=== PATIENT | female | born 1965 | race Caucasian/White ===

== ENCOUNTER 2017-03-27 22:12 | Emergency (ER) | payer MEDICAID, SELFPAY ==
[2017-03-27 22:13] VITALS: BP 160/91; PULSE 85; RESP 14; TEMP 36.3; O2SAT 99; BMI 46.0
--- NOTE | 2017-03-28 00:28 | ED.DCSUM_ITS ---
- ER Visit Summary Date of Service: 03/28/17 Chief Complaint: Right eye swelling History of Present Illness: The patient is a [address] Oquendo. She reports that she began having swelling of her right eye 3 days ago. She used a cold compress and it resolved. States swelling is returned today. Her conjunctiva has been red for the past 3 days. She reports that she has had discharge and matting in the morning. She denies any change in her vision. She reports she has severe pain when she rubs her eye. Mild pain at rest. She denies any exposure to tanning richards or UV light. She reports that she does wear contact lenses. Physical Examination: Vitals: Stable. Afebrile. Visual acuity is 20/20 OD, 20/20 OS, 20/20 OU. Right eye: Mild swelling of her upper and lower eyelids. There is mild ecchymosis. She does have diffuse conjunctival injection with ciliary flush. There is no foreign body or abrasion. No forcing dye uptake. Pupils are equal round reactive to light. There is no consensual photophobia. General: Well-nourished and well-developed. Head: Normocephalic atraumatic. Neck: Supple, no lymphadenopathy. No JVD. Nontender. Cardiovascular: Regular rate and rhythm. No murmurs. Respiratory: No respiratory distress. Clear to auscultation bilaterally. Abdominal: Soft, nontender, nondistended, normal bowel sounds. No guarding, rebound, or peritoneal signs. Back: Nontender. Extremities: Nontender, no edema. Skin: Normal color, no rash. Neurologic: Alert and oriented ?3. Cranial nerves II through XII are intact. Normal strength and sensation. Psych: Normal affect. Emergency Department Course and Treatment: Patient was treated with Cipro eyedrops. She is resting comfortably. Treatment Plan: Patient will be discharged instructions to follow-up with Dr. Guerrier in 3-5 days for another exam. Return to the emergency department for any worsening symptoms. Disposition: To home in improved and stable condition. Impression:. Conjunctivitis on right. This note was generated with [employer] software. It may contain incorrect words, spelling, and punctuation that were not noted in review of the chart prior to signing ED Disposition - Plan for ED Patient: Disposition: Home or Assisted Living Chief Complaint: Eye Problem Instructions: ED Conjunctivitis Nonspecific Referrals: Gely Guerrier MD [STAFF PHYSICIAN] - 3-5 Days if not improving
[2017-03-28] MEDS: Ciprofloxacin 0.3% 2.5ml Bottle 2 DRP RIGHT EYE (00:49)
[2017-03-28] MEDS: Fluorescein 1 MG STRIP 1 STRIP RIGHT EYE (00:49)
[2017-03-28 00:51] VITALS: PULSE 74; RESP 16; O2SAT 97
== END 2017-03-28 00:54 | disposition home or self-care (01) ==
LOC: ED 23:36
PROVIDERS: Emergency Provider Emergency Medicine; Family Provider Family Medicine; PCP Family Medicine
DX: H10.9 Unspecified conjunctivitis (principal); Z72.0 Tobacco use; Z79.899 Other long term (current) drug therapy
CPT/HCPCS: 99283

== ENCOUNTER 2020-09-12 18:55 | Emergency (ER) | payer MEDICAID, SELFPAY ==
[2020-09-12 18:57] VITALS: BP 183/86; PULSE 78; RESP 15; TEMP 35.3; O2SAT 98; BMI 46.0
--- NOTE | 2020-09-12 20:08 | US_ITS ---
STUDY: VENOUS DOPPLER ULTRASOUND - RIGHT LOWER EXTREMITY REASON FOR EXAM: Female, 55 years old. RT HEEL NUMBNESS X 3 DAYS, RT CALF BURN SENSATION TECHNIQUE: Ultrasound evaluation of the deep vein system to include shaikh-scale imaging and compression was performed. Shaikh-scale imaging and Doppler sonographic evaluation, including duplex spectral analysis and qualitative color flow sonography, was performed. COMPARISON: None. FINDINGS: Common Femoral Vein: Normal compression, spontaneity and augmentation. Normal color Doppler. Common Femoral Vein/Greater Saphenous Junction: Normal compression, spontaneity and augmentation. Normal color Doppler. Deep Femoral Vein: Normal compression, spontaneity and augmentation. Normal color Doppler. Femoral Proximal: Normal compression, spontaneity and augmentation. Normal color Doppler. Femoral Middle: Normal compression, spontaneity and augmentation. Normal color Doppler. Femoral Distal: Normal compression, spontaneity and augmentation. Normal color Doppler. Popliteal Vein: Normal compression, spontaneity and augmentation. Normal color Doppler. Posterior Tibial Vein: Normal compression, spontaneity and augmentation. Normal color Doppler. Peroneal Vein: Normal compression, spontaneity and augmentation. Normal color Doppler. US/Venous Duplex Imag/Limited/Uni IMPRESSION: Normal venous Doppler ultrasound of the lower extremity. Electronically Signed: Ayaan Cobos MD at 21:21 EDT , Service support ,
[2020-09-12 20:46] LABS: Bedside Glucose 95 mg/dL (70-110)
--- NOTE | 2020-09-12 21:57 | EX.ED.DYSGE1 ---
HPI History of Present Illness Chief Complaint: Numb/Ting Informant: patient Narrative Narrative: 55-year-old female presented to the emergency department with numbness of the right heel extending down onto the lateral foot. She denies any recent trauma. It has been present for the past several days. Patient denies any prior history of the same. She states that she is not a known diabetic. She spends a lot of time at work on her foot. The symptoms began after a shift. She states it has gotten a little bit better since the day it began. She denies any muscle weakness. She went to the urgent care because she had mentioned she had some pain behind her knee they wanted her to see in the emergency department to rule out a DVT. [facility] Medical History Blair esophagus Bipolar disorder Home Medications bupropion HCl 300 mg PO DAILY 02/09/15 [History Last Taken Unknown] carbamazepine [Tegretol] 200 mg PO BID 02/09/15 [History Last Taken Unknown] omeprazole 20 mg PO BID 02/09/15 [History Last Taken Unknown] melatonin 1 mg PO QHS 09/12/20 [History Last Taken Unknown] Allergy/AdvReac Type Severity Reaction Status Date / Time acetaminophen [From [place]] Allergy Vomiting Verified 09/12/20 18:58 hydrocodone [From [place]] Allergy Vomiting Verified 09/12/20 18:58 Sulfa (Sulfonamide Allergy Angioedema Verified 03/27/17 22:17 Antibiotics) Social History (Updated 09/12/20 @ 22:[address] Omar Gee DO) Smoking Status: Former smoker substance use type: does not use ROS ROS ED Constitutional Constitutional ED: Denies chills or weight loss Eyes Eyes: Denies change in vision or diplopia ENT ENT ED: Denies ear pain, rhinorrhea or sore throat Cardiovascular Cardiovascular: Denies chest pain, orthopnea, palpitations or racing heartbeat Respiratory/Chest Respiratory/Chest: Denies cough, dyspnea or orthopnea Gastrointestinal Gastrointestinal: Denies abdominal pain, diarrhea, nausea or vomiting Genitourinary Genitourinary ED: Denies dysuria, hematuria or urinary frequency Musculoskeletal Musculoskeletal: Denies arthralgias or myalgias Integumentary Denies abscess or rash Neurologic Neurologic: Reports other Details: See history of present illness ; Denies headache(s) or weakness Psychiatric Psychiatric: Denies anxiety, depression, suicidal ideation or suicidal thoughts Endocrine Endocrinology: Denies polydipsia, polyphagia or polyuria Allergic/Immunologic Allergic/Immunologic ED: Denies mouth swelling, tongue swelling or urticaria EXAM Physical Exam Const Vital Signs: 09/12/20 18:57 Temperature 95.6 F L Temperature Source Temporal Pulse Rate 78 Respiratory Rate 15 Blood Pressure 183/86 H Blood Pressure Mean 118 Pulse Ox 98 Oxygen Delivery Method Room Air Positive well nourished, well developed and obese General Appearance ED: well developed Nutritional Appearance: obese HEENT Reports normocephalic, head/scalp atraumatic and moist mucous membranes Eyes PERRL and EOMs intact bilaterally Neck no lymphadenopathy, supple and no JVD Resp normal respiratory effort and clear to auscultation bilaterally Cardio regular rate, regular rhythm and no murmurs GI normal to inspection, nondistended, normoactive bowel sounds and non-tender Palpation: soft Back/Spine no CVA tenderness and normal ROM Extremity normal to inspection General Extremety ED: Negative for edema General Extremity: Negative for edema Neuro oriented x3 and CN's II-XII intact bilaterally Neuro Narrative: Patient reports decreased sensation over the heel of the right foot. Sensorium / Orientation: alert Motor Exam: strength 5/5 throughout Psych mental status grossly normal Mood & Affect: Negative for depressed or tearful Skin no rashes or lesions noted and no wounds MDM MDM MDM Narrative Medical decision making narrative: Patient's [id number] glucose 95. Hemoglobin A1c is 6. Duplex ultrasound is negative. Patient can follow-up either with podiatry with her family doctor. We talked about neuropraxia versus neuro peripheral neuropathy. She may consider a heel cup. Patient understands the plan return if worsening or concerns Lab Data Labs: Laboratory Results - last 24 hr 09/12/20 09/12/20 20:30 20:39 Hemoglobin A1c 6.0 H POC Glucose 95 Radiography Diagnostic Testing: Radiology Impression Venous Duplex 09/12/20 20:08 IMPRESSION: Normal venous Doppler ultrasound of the lower extremity. Electronically Signed: Ayaan Cobos MD at 21:21 EDT , Service support , Discharge Plan Triage Chief Complaint: Numb/Ting ED Provider: Omar Gee Dx/Rx/DC Orders Clinical Impression: Neuropathy Instructions: ED Neuropathy, Peripheral Prescriptions: No Action carbamazepine [Tegretol] 200 MG tablet 200 mg PO BID RF: 0 omeprazole 20 MG capsule 20 mg PO BID RF: 0 bupropion HCl 300 MG tablet extended release 24 hr 300 mg PO DAILY RF: 0 melatonin 1 mg Tablet 1 mg PO QHS RF: 0 Primary Care Provider: PodMacie barr NP Referrals: Alessia Baca DPM [STAFF PHYSICIAN] - As soon as possible (for podiatry ) Macie Tirado NP, LINE UP MACHINE OPERATOR-C [Primary Care Provider] - Disposition Disposition: Home, Self Care Discharge Date/Time: 09/12/20 22:02
[2020-09-12 22:02] VITALS: BP 144/76; PULSE 65; RESP 16
== END 2020-09-12 22:02 | disposition home or self-care (01) ==
PROVIDERS: Emergency Provider Emergency Medicine; PCP Nurse Practitioner Primary Care
DX: G62.9 Polyneuropathy, unspecified (principal); F31.9 Bipolar disorder, unspecified; E66.9 Obesity, unspecified; Z79.899 Other long term (current) drug therapy; Z87.891 Personal history of nicotine dependence
CPT/HCPCS: 36415; 82962; 83036; 93971; 99282

== ENCOUNTER 2021-06-03 22:20 | Emergency (ER) | payer MEDICAID, SELFPAY ==
[2021-06-03 22:20] VITALS: BP 183/85; PULSE 94; RESP 18; TEMP 35.7; O2SAT 95; BMI 44.2
[2021-06-03] MEDS: Fluorescein 1 MG STRIP 1 STRIP RIGHT EYE (22:57)
--- NOTE | 2021-06-03 23:00 | EX.ED.VIS.EY ---
HPI History of Present Illness Chief Complaint: Eye Problem Detail of Chief Complaint: Right upper eyelid swelling. Informant: patient Onset/Context/Timing Location: Right Eye Onset: Days Context: Gradual Onset Timing: Continuous Current Severity: Mild Maximum Severity: Mild Associated Symptoms Associated Symptoms - Eyes: Eyelid swelling; Negative for Burning, Crusting, Drainage, Itching, Matting, Pain, Photophobia and Redness History of injury: No Visual correction: Glasses Narrative Narrative: 56-year-old female wears glasses no contacts. Has never had eye surgery. Said on Thursday her right upper lid start becoming uncomfortable. Then she developed swelling of the last several days worse yesterday. Denies any fever. No discharge. Increased watering. She denies any foreign body or injury. No visual changes. No discharge. Prior similar symptoms: No Recent Illness/Hospitalization: No PFSH PFSH Medical History Blair esophagus Bipolar disorder Home Medications bupropion HCl 300 mg PO DAILY 02/09/15 [History Last Taken Unknown] carbamazepine [Tegretol] 200 mg PO BID 02/09/15 [History Last Taken Unknown] omeprazole 20 mg PO BID 02/09/15 [History Last Taken Unknown] melatonin 1 mg PO QHS 09/12/20 [History Last Taken Unknown] Allergy/AdvReac Type Severity Reaction Status Date / Time acetaminophen [From [place]] Allergy Vomiting Verified 06/03/21 22:22 hydrocodone [From [place]] Allergy Vomiting Verified 06/03/21 22:22 Sulfa (Sulfonamide Allergy Angioedema Verified 06/03/21 22:22 Antibiotics) Social History Smoking Status: Former smoker substance use type: does not use ROS ROS ED ROS Narrative Denies recent illness. Review of Systems ROS Unobtainable: Denies due to encephalopathy Constitutional Constitutional ED: Denies fever(s) Eyes Eyes: Denies change in vision ENT ENT ED: Denies ear pain Cardiovascular Cardiovascular: Denies chest pain Respiratory/Chest Respiratory/Chest: Denies dyspnea Gastrointestinal Gastrointestinal: Denies abdominal pain, diarrhea, nausea or vomiting Genitourinary Genitourinary ED: Denies dysuria Musculoskeletal Musculoskeletal: Denies myalgias Integumentary Denies rash Neurologic Neurologic: Denies headache(s) Psychiatric Psychiatric: Denies depression Endocrine Endocrinology: Denies polyuria Hematologic/Lymphatic Hematologic/Lymphatic: Denies easy bruising Allergic/Immunologic Allergic/Immunologic ED: Denies urticaria EXAM Physical Exam Narrative Exam Narrative: 36-year-old female no acute distress. Vital signs stable afebrile. H EENT exam pupils round reactive light extraocular motions are intact. The sclera cornea and pupil are unremarkable bilaterally. The right eye is watering a little bit more than the left. There is no discharge. Lower lids are both normal. The right upper lid is red and swollen. There appears to be an early stye in the midportion of the right upper lid. There is no pus or discharge. Fluorescein staining of the right eye and slit-lamp exam shows no foreign body, no corneal abrasion or signs of infection. There is no cellulitis. There is no preauricular lymphadenopathy. Neck nontender no lymphadenopathy. Lungs are clear. Heart regular rhythm. Otherwise exam unremarkable. Const Vital Signs: 06/03/21 22:20 Temperature 96.2 F L Temperature Source Temporal Pulse Rate 94 Respiratory Rate 18 Blood Pressure 183/85 H Blood Pressure Mean 117 Pulse Ox 95 Oxygen Delivery Method Room Air Positive well nourished, well developed and obese; Negative for cachectic, contractures or unkempt General Appearance ED: well developed and NAD; Negative for unkempt, cachectic or contractures Nutritional Appearance: obese; Negative for cachectic HEENT atraumatic; Negative for trauma or tenderness Eyes Eyes Narrative: Right upper eyelid red and swollen. Appears to be an early stye in the midportion. No discharge. Pupils round reactive light. Bilaterally. Extraocular motions are intact bilaterally. No discharge. No corneal abrasion. No foreign body. General Eye ED: Yes normal light reflex; Negative for enophthalmos, exophthalmos, proptosis, pale conjunctiva or scleral icterus Visual Acuity: acuity normal Visual Field: No peripheral vision loss Alignment: alignment normal Eyelid: eyelids abnormal right upper eyelid; Negative for eyelids normal Conjunctiva: conjunctiva normal Cornea: cornea normal Pupil: accommodation reflex normal; Negative for sluggish or Anselmo Donald pupil EOM: Negative for EOM abnormal, movement deficit or nystagmus Slit Lamp: slit lamp exam performed with fluorescein Neck no lymphadenopathy, supple and no JVD General: Negative for tenderness Resp normal respiratory effort, no retractions, no use of accessory muscles and clear to auscultation bilaterally Cardio regular rate, S1 normal heart sound, S2 normal heart sound and no murmurs GI non-tender, non-distended and no masses Auscultation: normoactive bowel sounds Palpation: soft Extremity normal to inspection General Extremety ED: Negative for edema General Extremity: Negative for edema Neuro oriented x3 and moves all extremities Sensorium / Orientation: alert, oriented to person, oriented to place and oriented to time Motor Exam: strength 5/5 throughout Psych Appearance: Negative for unkempt Attitude: No agitated Mood & Affect: Negative for depressed, anxious or tearful Skin no wounds Lesions: no lesions Rashes: no rashes MDM MDM MDM Narrative Medical decision making narrative: Right upper eyelid redness swelling consistent with a stye. This could potentially be blepharitis but organ to do conservative therapy with warm compress if this does not improve she will follow-up with [facility]. Discharge Plan Triage Chief Complaint: Eye Problem ED Provider: Sundeep Jones Dx/Rx/DC Orders Clinical Impression: Hordeolum externum (stye) Instructions: ED Sty Prescriptions: No Action carbamazepine [Tegretol] 200 MG tablet 200 mg PO BID RF: 0 omeprazole 20 MG capsule 20 mg PO BID RF: 0 bupropion HCl 300 MG tablet extended release 24 hr 300 mg PO DAILY RF: 0 melatonin 1 mg Tablet 1 mg PO QHS RF: 0 Primary Care Provider: Macie Tirado NP Referrals: Clyde Rodgers MD [STAFF PHYSICIAN] - 3-5 Days if not improving Macie Tirado NP, PROVIDER NETWORK MGR-C [Primary Care Provider] - Activity Restrictions/Additional Instructions: Most likely this appears to be an early stye in the midportion of the right upper eyelid. Treat with warm compresses. If this does not improve follow-up with [facility]. It could be what is called blepharitis which is an irritation of the right upper eyelids. That should also improve the warm compresses and washing of the upper eyelids. If it does not we may have to put you on antibiotics. Disposition Disposition: Home, Self Care
[2021-06-03 23:06] VITALS: BP 147/83
== END 2021-06-03 23:15 | disposition home or self-care (01) ==
PROVIDERS: Emergency Provider Emergency Medicine; PCP Nurse Practitioner Primary Care; Visit Provider Emergency Medicine
DX: H00.011 Hordeolum externum right upper eyelid (principal); F31.9 Bipolar disorder, unspecified; Z97.3 Presence of spectacles and contact lenses; Z79.899 Other long term (current) drug therapy; Z87.891 Personal history of nicotine dependence
CPT/HCPCS: 99282

== ENCOUNTER 2022-01-29 10:28 | Emergency (ER) | payer MEDICAID, SELFPAY ==
[2022-01-29 10:28] VITALS: BP 183/89; PULSE 82; RESP 16; TEMP 35.4; O2SAT 97; BMI 44.2
--- NOTE | 2022-01-29 11:47 | EDS_ITS ---
HPI History of Present Illness HPI Narrative: Patient is with laceration to her left index finger that occurred this morning. Patient states she was using a knife to cut cabbage and accidentally cut her finger. Patient is right-hand dominant. Patient states her last tetanus was within 5 years. Patient states that her pain feels like it is stinging. Patient states it is better with elevation and worse in a dependent position. Patient denies any paresthesias or weakness. Patient denies any other injuries. Chief Complaint: Laceration Informant: patient Occured/Mechanism Comment: Cut with a knife Onset/Context/Timing Onset: Today Context: Sudden Onset Timing: Continuous Quality of Pain: - (Stinging) Location: Left index finger Associated Symptoms Associated Symptoms: Negative for Parasthesia, Weakness or Loss of Funtion PFSH PFS Medical History (Updated 01/29/22 @ 13:[address] Konstantin Carbone DO) Blair esophagus Bipolar disorder Home Medications bupropion HCl 300 mg 24 hr tablet, extended release 300 mg PO DAILY 02/09/15 [History Last Taken Unknown] carbamazepine 200 mg tablet (Tegretol) 200 mg PO BID 02/09/15 [History Last Taken Unknown] omeprazole 20 mg capsule,delayed release 20 mg PO BID 02/09/15 [History Last Taken Unknown] melatonin 1 mg tablet 1 mg PO QHS 09/12/20 [History Last Taken Unknown] Allergy/AdvReac Type Severity Reaction Status Date / Time acetaminophen [From [place]] Allergy Vomiting Verified 01/29/22 10:28 hydrocodone [From [place]] Allergy Vomiting Verified 01/29/22 10:28 Sulfa (Sulfonamide Allergy Angioedema Verified 01/29/22 10:28 Antibiotics) Surgical History (Updated 01/29/22 @ 11:[address] Konstantin Carbone DO) Hx of cholecystectomy Social History Smoking Status: Former smoker substance use type: does not use ROS ROS ED Constitutional Constitutional ED: Denies chills or fever(s) Eyes Eyes: Denies blurry vision or change in vision ENT ENT ED: Denies rhinorrhea or sore throat Cardiovascular Cardiovascular: Denies chest pain or palpitations Respiratory/Chest Respiratory/Chest: Denies cough or dyspnea Gastrointestinal Gastrointestinal: Denies nausea or vomiting Genitourinary Genitourinary ED: Denies dysuria or hematuria Musculoskeletal Musculoskeletal: Denies back pain or neck pain Integumentary Denies abscess or rash Neurologic Neurologic: Denies headache(s) or weakness Allergic/Immunologic Allergic/Immunologic ED: Denies mouth swelling or urticaria EXAM Physical Exam Const Vital Signs: 01/29/22 10:28 Temperature 95.8 F L Temperature Source Temporal Pulse Rate 82 Respiratory Rate 16 Blood Pressure 183/89 H Blood Pressure Mean 120 Pulse Ox 97 Oxygen Delivery Method Room Air Positive well nourished, well developed and obese General Appearance ED: well developed and NAD Nutritional Appearance: obese HEENT Reports moist mucous membranes Neck full ROM and supple Extremity Extremity Narrative: There is a 1.5 cm full-thickness linear laceration of the radial aspect of the left index finger on the distal phalanx. There is mild gapping of the wound margins. There are no foreign bodies visualized. There is full range of motion of the MP, PIP, and DIP joints. Strength is 5/5 in flexion extension of the MP, PIP, and DIP joints. Sensation was intact to light touch in all digits. Capillary refill is less than 2 seconds in all digits. Neuro oriented x3, CN's II-XII intact bilaterally, moves all extremities, no focal motor deficits and no sensory deficits noted Sensorium / Orientation: alert Motor Exam: strength 5/5 throughout Psych mental status grossly normal MDM MDM MDM Narrative Medical decision making narrative: The wound was cleaned and irrigated with copious amounts of normal saline. The wound was anesthetized with 1% plain lidocaine via digital block. The wound was closed with 3 simple interrupted #4-0 nylon sutures under sterile technique. Patient tolerated the procedure well. Bacitracin dressing was applied. Patient was instructed to keep the wound clean and dry. Patient was instructed to follow-up with her primary care physician in 5 to 7 days for wound recheck and suture removal. Patient understood and was agreeable with the plan. All questions were answered. Procedures Lacerations Left index finger: Length: 1.5 cm Depth: Sub Q Shape: Linear Prep: Sterile Conditions and Chlorhexadine Laceration repair: Digital block, Irrigated, Lidocaine, Skin sutures and Wound explored Irrigated (ml): 60 Number of Sutures/Doc: 3 Suture Information: Ethilon, Simple and 4-0 Discharge Plan Triage Chief Complaint: Laceration ED Provider: Konstantin Carbone Dx/Rx/DC Orders Clinical Impression: Laceration of left index finger Instructions: ED Laceration, Hand: All Closures Prescriptions: No Action carbamazepine [Tegretol] 200 MG tablet 200 mg PO BID omeprazole 20 MG capsule 20 mg PO BID bupropion HCl 300 MG tablet extended release 24 hr 300 mg PO DAILY melatonin 1 mg Tablet 1 mg PO QHS Primary Care Provider: Macie Tirado NP Referrals: Macie Tirado NP, PAPER MACHINE BACKTENDER-C [Primary Care Provider] - 7 Days for suture removal Disposition Disposition: Home, Self Care
[2022-01-29] MEDS: Lidocaine 1% (20 ml mdv) 20 ML Vial INFILT (13:19)
[2022-01-29 13:28] VITALS: RESP 16
== END 2022-01-29 13:34 | disposition home or self-care (01) ==
PROVIDERS: Emergency Provider Emergency Medicine; PCP Nurse Practitioner Primary Care; Visit Provider Emergency Medicine
DX: S61.211A Laceration without foreign body of left index finger without damage to nail, initial encounter (principal); E66.9 Obesity, unspecified; Z87.891 Personal history of nicotine dependence; W26.0XXA Contact with knife, initial encounter; Y93.G3 Activity, cooking and baking
CPT/HCPCS: 12001; 99283

== ENCOUNTER 2023-08-28 13:19 | Emergency (ER) | payer SELFPAY ==
[2023-08-28 13:19] VITALS: BP 136/78; PULSE 84; RESP 22; TEMP 35.8; O2SAT 90; BMI 45.1
--- NOTE | 2023-08-28 13:56 | EDS_ITS ---
HPI History of Present Illness HPI Narrative: Patient presents with pain in her right foot that occurred 1 week ago. Patient states she stepped on it wrong 1 week ago and felt pain in her foot. Patient states she kept it elevated and rested. Patient states that yesterday she reinjured it. Patient states her pain is dull and aching. Patient states it is sharp and stabbing with weightbearing. Patient denies any paresthesias or weakness. Patient denies any other injuries. Chief Complaint: Lower Extremity Injury Informant: patient Onset/Context/Timing Onset: Weeks (1) Context: Sudden Onset Timing: Continuous Quality of Pain: Dull and Aching Location: Right foot Worsened by: Weightbearing Relieved by: Rest Associated Symptoms Associated Symptoms: Negative for Parasthesia, Weakness or Loss of Funtion [facility] Medical History (Updated 08/28/23 @ 16:[address] Konstantin Carbone DO) [place] esophagus Bipolar disorder Home Medications ?Medication ?Instructions ?Recorded ?Last Taken ?Type bupropion HCl 300 mg 24 hr tablet, 300 mg PO DAILY 02/09/15 Unknown History extended release carbamazepine 200 mg tablet 200 mg PO BID 02/09/15 Unknown History (Tegretol) omeprazole 20 mg capsule,delayed 20 mg PO BID 02/09/15 Unknown History release melatonin 1 mg tablet 1 mg PO QHS 09/12/20 Unknown History Allergy/AdvReac Type Severity Reaction Status Date / Time acetaminophen (From [place]) Allergy Vomiting Verified 08/28/23 13:21 hydrocodone (From [place]) Allergy Vomiting Verified 08/28/23 13:21 Sulfa (Sulfonamide Allergy Angioedema Verified 08/28/23 13:21 Antibiotics) Surgical History (Updated 08/28/23 @ 13:[address] Konstantin Carbone DO) Hx of tubal ligation Hx of cholecystectomy Social History Smoking Status: Former smoker substance use type: does not use ROS ROS ED Constitutional Constitutional ED: Denies chills or fever(s) Eyes Eyes: Denies blurry vision or change in vision ENT ENT ED: Denies rhinorrhea or sore throat Cardiovascular Cardiovascular: Denies chest pain or palpitations Respiratory/Chest Respiratory/Chest: Reports cough; Denies dyspnea Gastrointestinal Gastrointestinal: Denies nausea or vomiting Genitourinary Genitourinary ED: Denies dysuria or hematuria Musculoskeletal Musculoskeletal: Denies back pain or neck pain Integumentary Denies abscess or rash Neurologic Neurologic: Reports headache(s); Denies weakness Allergic/Immunologic Allergic/Immunologic ED: Denies mouth swelling or urticaria EXAM Physical Exam Const Vital Signs: 08/28/23 13:19 Temperature 96.4 F L Temperature Source Temporal Pulse Rate 84 Respiratory Rate 22 H Blood Pressure 136/78 H Blood Pressure Mean 97 Pulse Ox 90 Positive well nourished and well developed General Appearance ED: well developed and NAD HEENT Reports moist mucous membranes Neck full ROM and supple Extremity Extremity Narrative: There is tenderness and mild edema over the right fifth metatarsal and hindfoot. There is no tenderness over the lateral malleolus. There is no tenderness over the medial malleolus. Range of motion was slightly limited in flexion extension of the right ankle secondary to pain. Sensation was intact to light touch in all digits. Capillary refill was less than 2 seconds in all digits. Strength is 5/5 bilaterally in the lower extremities. There is good pedal pulse noted. Neuro oriented x3, CN's II-XII intact bilaterally, moves all extremities and no sensory deficits noted Sensorium / Orientation: alert Motor Exam: strength 5/5 throughout Psych mental status grossly normal MDM MDM MDM Narrative Medical decision making narrative: Differential diagnosis includes fracture and sprain. X-rays of the right foot will be obtained to assess for fracture. Radiography Diagnostic Testing: Clinical Impression(s) from Imaging Studies Foot X-Ray 08/28/23 14:12 IMPRESSION: Diffuse dorsal soft tissue swelling. No acute fracture is seen. Electronically Signed: Ayaan Cobos MD at 14:39 EDT , X-rays of the right foot were obtained. There are 3 views. On my independent interpretation, there is no acute fracture noted. There is some soft tissue swelling noted. Radiologist also interpreted the x-rays and agrees. Treatment and Re-Evaluation Narrative: Patient was advised of her findings. Patient was given a postoperative shoe. Patient was instructed to ice and elevate the right foot. Patient was instruct ed to take Tylenol or ibuprofen as needed for pain. Patient was instructed to return if worse in any way. Patient understood and was agreeable with the plan. All questions were answered. Discharge Plan Triage Chief Complaint: Lower Extremity Injury ED Provider: Konstantin Carbone Dx/Rx/DC Orders Clinical Impression: Sprain of foot, right, Body mass index (BMI) of 40.0 to 49.9 Instructions: ED Foot Sprain Prescriptions: No Action carbamazepine [Tegretol] 200 MG tablet 200 mg PO BID omeprazole 20 MG capsule 20 mg PO BID bupropion HCl 300 MG tablet extended release 24 hr 300 mg PO DAILY melatonin 1 mg Tablet 1 mg PO QHS Primary Care Provider: Macie Tirado NP Referrals: Macie Tirado NP, [employer] [Primary Care Provider] - 5-7 Days Print Language: Togolese Disposition Disposition: Home, Self Care
--- NOTE | 2023-08-28 14:12 | RAD_ITS ---
STUDY: X-RAY - RIGHT FOOT CLINICAL: Female, 58 years old. Right foot pain following a recent fall. TECHNIQUE: 3 view(s) of the foot. COMPARISON: None. FINDINGS: There is an enthesophyte involving the posterior superior calcaneus at the site of insertion of the Achilles tendon. Normal visualized subtalar, talonavicular, calcaneocuboid, tarsal and tarsometatarsal articulations. Normal metatarsi. There is degenerative arthrosis of the metatarsophalangeal joint of the hallux . Normal tibial and fibular sesamoid bones. Normal interphalangeal joint of the great toe. Normal phalanges of the great toe. Normal second through fifth metatarsophalangeal joints. Normal interphalangeal joints and phalanges of the lesser toes. Diffuse dorsal soft tissue swelling. RAD/Foot min 3 Views IMPRESSION: Diffuse dorsal soft tissue swelling. No acute fracture is seen. Electronically Signed: Ayaan Cobos MD at 14:39 EDT ,
[2023-08-28 16:53] VITALS: BP 130/71; PULSE 84; RESP 20; TEMP 35.8; O2SAT 93
== END 2023-08-28 16:57 | disposition home or self-care (01) ==
PROVIDERS: Emergency Provider Emergency Medicine; PCP Nurse Practitioner Primary Care; Visit Provider Emergency Medicine
DX: S93.601A Unspecified sprain of right foot, initial encounter (principal); X58.XXXA Exposure to other specified factors, initial encounter; Z79.899 Other long term (current) drug therapy; Z87.891 Personal history of nicotine dependence
CPT/HCPCS: 73630; 99283